=== PATIENT | male | born 1970 | race Caucasian/White ===

== ENCOUNTER 2020-01-25 10:12 | Emergency (ER) | payer BC | END 2020-01-25 11:23 | disposition home or self-care (01) | LOC: JVIRT 10:12 | DX: Z03.818 Encounter for observation for suspected exposure to other biological agents ruled out (principal) | CPT/HCPCS: C9803; G2012-GT; U0003 ==

== ENCOUNTER 2020-02-18 10:43 | Emergency (ER) | payer BC | END 2020-02-18 13:26 | disposition home or self-care (01) | LOC: JVIRT 10:43 | DX: Z03.818 Encounter for observation for suspected exposure to other biological agents ruled out (principal) | CPT/HCPCS: C9803; Q3014-GT; U0003 ==